=== PATIENT | male | born 1965 | race Caucasian/White ===

== ENCOUNTER 2019-02-09 05:50 | Day surgery (SDC) | payer OTHER ==
[~2019-02-09] VITALS: Ht 175.3 cm; Wt 62.5 kg
[2019-02-09] VITALS (7 sets, daily range): BP systolic 106–137; BP diastolic 24–78; PULSE 58–66; RESP 12–25; Ht 175.3 cm; Wt 62.5 kg
[~2019-02-09 05:50] MED LIST: PANT40TA4 PO; multivitamins PO
[2019-02-09] MEDS ORDERED: PROPOFOL 40 ML ONE (08:31)
== END 2019-02-09 10:15 | disposition home or self-care (01) ==
LOC: GIL 05:50 → SDS 05:50 → GIL 10:15
PROVIDERS: ATTEND Internal Medicine Gastroenterology
DX: I85.00 Esophageal varices without bleeding (principal); K76.6 Portal hypertension; K31.89 Other diseases of stomach and duodenum
CPT/HCPCS: 88305